=== PATIENT | male | born 1950 | race Caucasian/White ===

== ENCOUNTER 2017-12-21 13:47 | Outpatient (CLI) | payer OTHER ==
[~2017-12-21 13:47] MED LIST: CETIRIZINE HCL10 MG; DICLOFENAC POTA50 MG; PREDNISONE20 MG; SULFAMETHOXAZOL1 TA5
== END 2017-12-21 14:00 | disposition home or self-care (01) ==
LOC: LAB 13:47
DX: R31.29 Other microscopic hematuria (principal)

== ENCOUNTER 2017-12-29 14:24 | Outpatient (CLI) | payer OTHER | END 2017-12-29 14:26 | disposition home or self-care (01) | LOC: NUCLEAR 14:24 | DX: N13.1 Hydronephrosis with ureteral stricture, not elsewhere classified (principal); N13.4 Hydroureter | CPT/HCPCS: 78708; A9539; J1940 ==

== ENCOUNTER 2018-01-24 18:40 | Emergency (ER) | payer OTHER ==
[~2018-01-24] VITALS: Ht 162.6 cm; Wt 72.6 kg
== END 2018-01-24 20:26 | disposition home or self-care (01) ==
LOC: ER 18:40
DX: B02.8 Zoster with other complications (principal)

== ENCOUNTER 2018-03-24 07:29 | Outpatient (CLI) | payer OTHER | END 2018-03-24 09:13 | disposition home or self-care (01) | LOC: NUCLEAR 07:29 | DX: I25.84 Coronary atherosclerosis due to calcified coronary lesion (principal); I65.29 Occlusion and stenosis of unspecified carotid artery | CPT/HCPCS: 72148 ==

== ENCOUNTER 2018-03-24 09:00 | Outpatient (CLI) | payer OTHER | END 2018-03-24 09:16 | disposition home or self-care (01) | LOC: MRI 09:00 | DX: M54.16 Radiculopathy, lumbar region (principal) | CPT/HCPCS: 72148 ==

== ENCOUNTER 2018-08-07 07:00 | Inpatient (IN) | payer OTHER ==
[~2018-08-07] VITALS: Ht 162.6 cm; Wt 75.7 kg
== END 2018-08-18 10:54 | disposition home or self-care (01) | DRG 707 ==
LOC: SURH 08-14 05:48 → O/R 08-14 05:48 → SURH 08-14 07:00
PROVIDERS: Urology
PROC: 07TC0ZZ Resection of Pelvis Lymphatic, Open Approach (ICD-10-PCS; 2018-08-14)
PROC: 0VT00ZZ Resection of Prostate, Open Approach (ICD-10-PCS; principal; 2018-08-14 07:00)
DX: C61 Malignant neoplasm of prostate (principal); N13.1 Hydronephrosis with ureteral stricture, not elsewhere classified; K56.0 Paralytic ileus; K91.89 Other postprocedural complications and disorders of digestive system

== ENCOUNTER 2018-08-22 14:20 | Outpatient (CLI) | payer OTHER | END 2018-08-22 14:44 | disposition home or self-care (01) | LOC: NUCLEAR 14:20 | DX: I82.1 Thrombophlebitis migrans (principal); C61 Malignant neoplasm of prostate; I87.2 Venous insufficiency (chronic) (peripheral) ==

== ENCOUNTER 2023-02-21 10:02 | Outpatient (CLI) | payer OTHER | END 2023-02-21 10:04 | disposition home or self-care (01) | LOC: NUCLEAR 10:02 | PROVIDERS: ATTEND Urology | DX: N13.1 Hydronephrosis with ureteral stricture, not elsewhere classified (principal); C61 Malignant neoplasm of prostate | CPT/HCPCS: 78709; A9539; J1940 ==